=== PATIENT | male | born 1995 | race Two or more races ===

== ENCOUNTER 2018-07-06 00:12 | Emergency (ER) | payer SELFPAY ==
[2018-07-06] MEDS: KETOROLAC 60 MG INJ IM (01:02)
[2018-07-06] MEDS: HYDROCODONE/APAP (10/325) TAB PO (01:02)
== END 2018-07-06 03:18 | disposition home or self-care (01) ==
LOC: FTE 00:12
DX: S63.102A Unspecified subluxation of left thumb, initial encounter (principal); W23.0XXA Caught, crushed, jammed, or pinched between moving objects, initial encounter; Y92.810 Car as the place of occurrence of the external cause
CPT/HCPCS: 29125; 73110-LT; 73130-LT; 96372; 99284-25